=== PATIENT | female | born 1980 | race Caucasian/White ===

== ENCOUNTER 2020-12-23 21:32 | Emergency (ER) | payer MEDICAID ==
[2020-12-23] MEDS ORDERED: SODIUM CHLORIDE 0.9% 1,000 ML IV STA (22:02)
[2020-12-23] MEDS ORDERED: carvediloL 3.125 MG TABLET PO STA (22:02)
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
[2020-12-23 22:20] LABS: BILIRUBIN,URINE NEGATIVE (NEGATIVE); CLARITY,URINE CLEAR (CLEAR); GLUCOSE, URINE (UA) NEGATIVE (NEGATIVE); KETONES,URINE (UA) NEGATIVE (NEGATIVE); LEUKOCYTE ESTERASE, URINE NEGATIVE (NEGATIVE); NITRITE,URINE NEGATIVE (NEGATIVE); OCCULT BLOOD,URINE NEGATIVE (NEGATIVE); PROTEIN,URINE NEGATIVE (NEGATIVE); UROBILINOGEN,URINE 0.2 (NORMAL) E.U./dL (NORMAL)
[2020-12-23 22:32] LABS: BASOPHILS # (AUTO) 0.1 10^3/uL (0.0-0.1); BASOPHILS % (AUTO) 0.6 %; EOSINOPHILS # (AUTO) 0.2 10^3/uL (0.0-0.7); EOSINOPHILS % (AUTO) 2.2 %; HGB - HEMOGLOBIN 13.7 g/dL (12.0-16.0); LYMPHOCYTES # (AUTO) 3.7 10^3/uL (1.5-3.5); LYMPHOCYTES % (AUTO) 33.8 %; MEAN CORPUSCULAR VOLUME 93.9 fL (81.0-99.0); MEAN PLATELET VOLUME 10.2 fL (7.9-10.8); MONOCYTES # (AUTO) 0.6 10^3/uL (0.0-1.0); MONOCYTES % (AUTO) 5.5 %; NEUTROPHILS # (AUTO) 6.3 10^3/uL (1.5-6.6); NEUTROPHILS % (AUTO) 57.5 %; PLT - PLATELET COUNT 299 10^3/uL (130-450); RED BLOOD COUNT 4.56 10^6/uL (4.20-5.40); RED CELL DISTRIBUTION WIDTH 13.8 % (12.0-15.0)
[2020-12-23 22:46] LABS: ALBUMIN 3.7 g/dL (3.2-5.5); ALBUMIN/GLOBULIN RATIO 1.2 (1.0-2.2); BILIRUBIN,TOTAL 0.5 mg/dL (0.2-1.0); CALCIUM 8.8 mg/dL (8.5-10.3); CREATININE 0.9 mg/dL (0.4-1.0); MAGNESIUM 1.8 mg/dL (1.7-2.8); TOTAL PROTEIN 6.7 g/dL (6.7-8.2)
[2020-12-24] MEDS ORDERED: SODIUM CHLORIDE 0.9% 500 ML IV STA (00:09)
[2020-12-24 01:03] VITALS: BP 141/117
[2020-12-24] MEDS ORDERED: lisinopriL 5 MG TABLET PO STA (01:06)
--- NOTE | 2020-12-24 09:33 | XRAY Report ---
PROCEDURE: Chest 1 View X-Ray INDICATIONS: Shortness of breath. TECHNIQUE: One view of the chest was acquired. COMPARISON: FINDINGS: Surgical changes and devices: None. Lungs and pleura: No pleural effusions or pneumothorax. Lungs are difficult to accurately assess du e to mildly reduced inspiratory volume and large body habitus. There may be a small degree of pulmona ry edema. Mediastinum: Mediastinal contours appear normal. Heart size is normal. Bones and chest wall: No suspicious bony lesions. Overlying soft tissues appear unremarkable. IMPRESSION: Possible slight pulmonary edema. However, body habitus is large and the reduced inspiratory volume fu rther increases likelihood of false-positive sensitive alveolar edema. Upright PA and lateral chest p baldo film would be helpful for more accurate assessment. Reviewed by: Rj Falcon MD on 12/24/2020 9:31 AM PST Approved by: Rj Falcon MD on 12/24/2020 9:31 AM PST Station ID: [id number]
== END 2020-12-24 01:27 | disposition home or self-care (01) ==
LOC: ED 21:32
DX: I11.0 Hypertensive heart disease with heart failure (principal); I50.9 Heart failure, unspecified; T44.7X6A Underdosing of beta-adrenoreceptor antagonists, initial encounter; T46.4X6A Underdosing of angiotensin-converting-enzyme inhibitors, initial encounter; Z91.138 Patient's unintentional underdosing of medication regimen for other reason; E86.0 Dehydration
CPT/HCPCS: 36415; 71045; 80053; 81003; 83690; 83735; 83880; 84484; 85025; 93005; 96360; 96361; 99284; A9270; 81001; 87086

== ENCOUNTER 2021-02-20 14:45 | Emergency (ER) | payer MEDICAID ==
[2021-02-20 15:27] LABS: BASOPHILS # (AUTO) 0.1 10^3/uL (0.0-0.1); BASOPHILS % (AUTO) 0.7 %; EOSINOPHILS # (AUTO) 0.2 10^3/uL (0.0-0.7); EOSINOPHILS % (AUTO) 2.1 %; HCT - HEMATOCRIT 40.9 % (37.0-47.0); HGB - HEMOGLOBIN 13.5 g/dL (12.0-16.0); LYMPHOCYTES # (AUTO) 3.3 10^3/uL (1.5-3.5); LYMPHOCYTES % (AUTO) 31.3 %; MEAN CORPUSCULAR HEMOGLOBIN 30.5 pg (27.0-31.0); MEAN CORPUSCULAR VOLUME 92.3 fL (81.0-99.0); MONOCYTES # (AUTO) 0.8 10^3/uL (0.0-1.0); MONOCYTES % (AUTO) 7.5 %; NEUTROPHILS # (AUTO) 6.2 10^3/uL (1.5-6.6); NEUTROPHILS % (AUTO) 57.9 %; PLT - PLATELET COUNT 281 10^3/uL (130-450); RED BLOOD COUNT 4.43 10^6/uL (4.20-5.40); RED CELL DISTRIBUTION WIDTH 13.9 % (12.0-15.0); WHITE BLOOD COUNT 10.6 x10^3/uL (4.8-10.8)
[2021-02-20 15:36] LABS: ALBUMIN 3.7 g/dL (3.2-5.5); ALBUMIN/GLOBULIN RATIO 1.2 (1.0-2.2); BILIRUBIN,TOTAL 0.3 mg/dL (0.2-1.0); CALCIUM 9.1 mg/dL (8.5-10.3); CREATININE 0.7 mg/dL (0.4-1.0); POTASSIUM 3.8 mmol/L (3.5-5.0); TOTAL PROTEIN 6.8 g/dL (6.7-8.2)
--- NOTE | 2021-02-20 16:05 | XRAY Report ---
PROCEDURE: Chest 1 View X-Ray INDICATIONS: Chest pain TECHNIQUE: One view of the chest was acquired. COMPARISON: 12/23/2020 FINDINGS: Surgical changes and devices: None. Lungs and pleura: No pleural effusions or pneumothorax. Lungs are clear. Mediastinum: Mediastinal contours appear normal. Heart size is normal. Bones and chest wall: No suspicious bony lesions. Overlying soft tissues appear unremarkable. IMPRESSION: Portable chest study within normal limits. Reviewed by: Maximilian Valdez MD on 02/20/2021 3:04 PM AKDT Approved by: Maximilian Valdez MD on 02/20/2021 3:04 PM AKDT Station ID: [id number]
[2021-02-20] MEDS ORDERED: carvediloL 12.5 MG TABLET PO STA (16:07)
[2021-02-20] MEDS ORDERED: FUROSEMIDE 40 MG/4 ML VIAL IVP STA (16:07)
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
[2021-02-20] MEDS ORDERED: oxyCODONE 5 MG TABLET PO STA (16:33)
--- OUTSIDE RECORDS SUMMARY | 2021-02-20 17:14 | EXTERNAL MEDICAL SUMMARY RPT | Continuity of Care Document ---
:1980 Demographics Phone Unavailable Preferred Language Unknown Marital Status Unknown Denominational Affiliation Unknown Race Unknown Ethnic Group Unknown Author Organization [facility] Address [address] [id number] Phone Social History date description facility [id number]
[2021-02-20 17:27] VITALS: BP 119/78
== END 2021-02-20 17:41 | disposition home or self-care (01) ==
LOC: ED 14:45
DX: B33.24 Viral cardiomyopathy (principal)
CPT/HCPCS: 36415; 71045; 80053; 83690; 83880; 84484; 85025; 93005; 96374; 99284; A9270

== ENCOUNTER 2021-03-20 13:42 | Emergency (ER) | payer MEDICAID ==
[2021-03-20] MEDS ORDERED: MAG HYDROX/AL HYDROX/SIMETH 30 ML UDC PO STA (14:20)
--- NOTE | 2021-03-20 14:20 | ED Physician Documentation ---
History of Present Illness - Stated complaint Stated Complaint: DIZZINESS/FATIGUE - Chief complaint Chief Complaint: General - History obtained from History obtained from: Patient - Additonal information Additional information: 40-year-old woman with history of remote cholecystectomy and viral cardiomyopathy with EF in the mid 20s presents with right-sided abdominal pain that was central and is now more right. Feels like prior gallbladder pain but has had her gallbladder out. Is nauseous but denies vomiting. Its been going on for a month, she was going to wait to have it checked out but this morning at 5 AM awoke with headache, bilateral ear pressure and nonvertiginous dizziness. Review of Systems Ten Systems: 10 systems reviewed and negative Constitutional: denies: Fever, Chills Eyes: denies: Loss of vision, Decreased vision Ears: reports: Ear pain. denies: Loss of hearing Nose: denies: Rhinorrhea / runny nose PD PAST MEDICAL HISTORY - Past Medical History Past Medical History: Yes Cardiovascular: Other - Past Surgical History Past Surgical History: Yes General: Cholecystectomy - Present Medications Home Medications: Ambulatory Orders Medication Instructions Recorded Confirmed Carvedilol [Coreg] 6.25 mg PO DAILY #30 tab 12/24/20 Furosemide [Lasix] 40 mg PO DAILY PRN #30 tab 12/24/20 Lisinopril [Prinivil] 5 mg PO DAILY #30 tab 12/24/20 Oxycodone HCl/Acetaminophen 1 - 2 each PO Q6H PRN #10 tablet 02/20/21 [Percocet 5-325 mg Tablet] carvediloL [Coreg] 12.5 mg PO BID #60 tablet 02/20/21 HYDROcod/ACETAM 5/325 [Delevan 5/325] 1 - 2 tab PO Q6H PRN #15 tablet 03/20/21 Omeprazole 40 mg PO DAILY #30 cap 03/20/21 - Allergies Allergies/Adverse Reactions: Allergies Allergy/AdvReac Type Severity Reaction Status Date / Time cephalexin [From Keflex] AdvReac Hives Verified 03/20/21 13:52 - Social History Does the pt smoke?: No Smoking Status: Never smoker Does the pt drink ETOH?: No Does the pt have substance abuse?: No - Immunizations Immunizations are current?: Yes - POLST Patient has POLST: No PD ED PE NORMAL - Vitals Vital signs reviewed: Yes - General General: Alert and oriented X 3, No acute distress - HEENT HEENT: PERRL, EOMI, Other (Sclerosis of the right TM, no fluid behind either eardrum.) - Neck Neck: Supple, no meningeal sign, No bony TTP - Cardiac Cardiac: RRR, No murmur - Respiratory Respiratory: No respiratory distress, Clear bilaterally - Abdomen Abdomen: Normal bowel sounds, Soft, Non tender - Back Back: No CVA TTP, No spinal TTP - Derm Derm: Normal color, Warm and dry - Extremities Extremities: No edema, No calf tenderness / cord - Neuro Neuro: Alert and oriented X 3, No motor deficit, No sensory deficit, Normal speech, Other (NIH stroke scale of 0) Results - Vitals Vitals: Vital Signs - 24 hr 03/20/21 03/20/21 13:46 14:07 Temperature 36.5 C 36.5 C Heart Rate 110 H 110 H Respiratory 17 17 Rate Blood Pressure 142/108 H 142/108 H O2 Saturation 97 97 Oxygen O2 Source Room air - Labs Labs: Laboratory Tests 03/20/21 03/20/21 03/20/21 14:23 14:35 14:35 WBC 11.4 H RBC 4.53 Hgb 13.5 Hct 42.1 MCV 92.9 MCH 29.8 MCHC 32.1 RDW 14.1 Plt Count 274 MPV 10.1 Neut # (Auto) 6.5 Lymph # (Auto) 3.5 [place] # (Auto) 0.9 Eos # (Auto) 0.4 Baso # (Auto) 0.1 Absolute Nucleated RBC 0.00 Nucleated RBC % 0.0 Sodium 135 Potassium 3.9 Chloride 100 L Carbon Dioxide 24 Anion Gap 11.0 BUN 18 Creatinine 0.8 Estimated GFR (MDRD) 79 L Glucose 136 H Calcium 9.2 Total Bilirubin 0.4 AST 39 ALT 42 Alkaline Phosphatase 60 B-Natriuretic Peptide Total Protein 6.8 Albumin 3.9 Globulin 2.9 Albumin/Globulin Ratio 1.3 Lipase 40 Urine Color YELLOW Urine Clarity CLEAR Urine pH 6.0 Ur Specific [place] 1.025 Urine Protein NEGATIVE Urine Glucose (UA) NEGATIVE Urine Ketones NEGATIVE Urine Occult Blood NEGATIVE Urine Nitrite NEGATIVE Urine Bilirubin NEGATIVE Urine Urobilinogen 0.2 (NORMAL) Ur Leukocyte Esterase NEGATIVE Ur Microscopic Review NOT INDICATED Urine Culture Comments NOT INDICATED Urine HCG, Qual NEGATIVE 03/20/21 14:35 WBC RBC Hgb Hct MCV MCH MCHC RDW Plt Count MPV Neut # (Auto) Lymph # (Auto) [place] # (Auto) Eos # (Auto) Baso # (Auto) Absolute Nucleated RBC Nucleated RBC % Sodium Potassium Chloride Carbon Dioxide Anion Gap BUN Creatinine Estimated GFR (MDRD) Glucose Calcium Total Bilirubin AST ALT Alkaline Phosphatase B-Natriuretic Peptide 54 Total Protein Albumin Globulin Albumin/Globulin Ratio Lipase Urine Color Urine Clarity Urine pH Ur Specific [place] Urine Protein Urine Glucose (UA) Urine Ketones Urine Occult Blood Urine Nitrite Urine Bilirubin Urine Urobilinogen Ur Leukocyte Esterase Ur Microscopic Review Urine Culture Comments Urine HCG, Qual - Rads (name of study) 2v chest Radiology: EMP read contemporaneously (NAD) CT Head and Abd Radiology: EMP read contemporaneously PD MEDICAL DECISION MAKING - ED course ED course: 40-year-old woman with history of cardiomyopathy and congestive heart failure presents with months worth of abdominal pain, specific concern for appendicitis but does not fit the history and physical. Also has nonspecific headache and dizziness. Her examination is very benign. No evidence of active fluid overload or CHF. Departure - Departure Disposition: Home, Self Care Clinical Impression: Viral cardiomyopathy, Dizziness Congestive heart failure Qualifiers: Heart failure type: unspecified Heart failure chronicity: chronic Qualified Code(s): I50.9 - Heart failure, unspecified Abdominal pain Qualifiers: Abdominal location: right lower quadrant Qualified Code(s): R10.31 - Right lower quadrant pain Condition: Good Record reviewed to determine appropriate education?: Yes Instructions: ED Abdominal Pain Unkn Cause Prescriptions: HYDROcod/ACETAM 5/325 [Delevan 5/325] 1 - 2 tab PO Q6H PRN #15 tablet PRN Reason: Pain Omeprazole 40 mg PO DAILY #30 cap Comments: .As discussed, there is no evidence of active heart failure. Your labs, CT of the head were normal as was your chest x-ray without evidence of fluid overload. CT of the belly showed diverticulosis and fatty liver. This could be the cause of your pain, probably reasonable to follow-up with your primary care physician on return home. Return for new or worsening symptoms I am prescribing a short course of narcotic pain medication for you. These are potentially dangerous and addictive medications that should be used carefully. These medications may constipate you. Take an [id number] stool softener (docusate) twice daily with plenty of water while taking these medications. If you go 24 hours without a bowel movement, take [id number] miralax, per package instructions. Do not drink or drive while taking these medications. If you received narcotic or sedating medications while in the emergency department, do not drive for 24 hours. Store this medication in a safe, secure place and out of reach of children. It is a violation of federal law to give or sell this medication to another person or to use in a manner other than prescribed. The ED will not refill narcotic prescriptions, including prescriptions lost or stolen. To dispose of unwanted medications: 1. [facility] at [address] in [facility] has a medication drop box. They accept prescription medications (in pill form) Monday through Monday 9:00 a.m. to 5:00 p.m. 2. The [facility] [employer] accepts prescription medications (in pill form only) for disposal year round. Call for more information. 3. Contact the [facility] for the next [facility] sponsored prescription drug collection event. , [phone], or [phone]; Note that many narcotic pain relievers also contain Tylenol/acetaminophen. Please ensure that your total dose of acetaminophen from all sources does not exceed 3 g (3000 mg) per day.
[2021-03-20] MEDS ORDERED: IOVERSOL 320 100 ML VIAL IVP ONE ×2 (14:27→15:19)
[2021-03-20 14:31] LABS: BILIRUBIN,URINE NEGATIVE (NEGATIVE); GLUCOSE, URINE (UA) NEGATIVE (NEGATIVE); KETONES,URINE (UA) NEGATIVE (NEGATIVE); LEUKOCYTE ESTERASE, URINE NEGATIVE (NEGATIVE); NITRITE,URINE NEGATIVE (NEGATIVE); OCCULT BLOOD,URINE NEGATIVE (NEGATIVE); PROTEIN,URINE NEGATIVE (NEGATIVE); UROBILINOGEN,URINE 0.2 (NORMAL) E.U./dL (NORMAL)
[2021-03-20 14:35] LABS: CLARITY,URINE CLEAR (CLEAR); HCG UR QUAL NEGATIVE
[2021-03-20 14:49] LABS: BASOPHILS # (AUTO) 0.1 10^3/uL (0.0-0.1); BASOPHILS % (AUTO) 0.9 %; EOSINOPHILS # (AUTO) 0.4 10^3/uL (0.0-0.7); EOSINOPHILS % (AUTO) 3.1 %; HCT - HEMATOCRIT 42.1 % (37.0-47.0); HGB - HEMOGLOBIN 13.5 g/dL (12.0-16.0); LYMPHOCYTES # (AUTO) 3.5 10^3/uL (1.5-3.5); LYMPHOCYTES % (AUTO) 30.8 %; MEAN CORPUSCULAR HEMOGLOBIN 29.8 pg (27.0-31.0); MEAN CORPUSCULAR HGB CONC 32.1 g/dL (32.0-36.0); MEAN CORPUSCULAR VOLUME 92.9 fL (81.0-99.0); MEAN PLATELET VOLUME 10.1 fL (7.9-10.8); MONOCYTES # (AUTO) 0.9 10^3/uL (0.0-1.0); MONOCYTES % (AUTO) 7.6 %; NEUTROPHILS # (AUTO) 6.5 10^3/uL (1.5-6.6); NEUTROPHILS % (AUTO) 57.2 %; PLT - PLATELET COUNT 274 10^3/uL (130-450); RED BLOOD COUNT 4.53 10^6/uL (4.20-5.40); RED CELL DISTRIBUTION WIDTH 14.1 % (12.0-15.0); WHITE BLOOD COUNT 11.4 x10^3/uL (4.8-10.8)
[2021-03-20 15:02] LABS: ALBUMIN 3.9 g/dL (3.2-5.5); ALBUMIN/GLOBULIN RATIO 1.3 (1.0-2.2); BILIRUBIN,TOTAL 0.4 mg/dL (0.2-1.0); CALCIUM 9.2 mg/dL (8.5-10.3); CREATININE 0.8 mg/dL (0.4-1.0); POTASSIUM 3.9 mmol/L (3.5-5.0); TOTAL PROTEIN 6.8 g/dL (6.7-8.2)
--- NOTE | 2021-03-20 15:22 | XRAY Report ---
PROCEDURE: Chest 2 View X-Ray INDICATIONS: dyspnea TECHNIQUE: 2 view(s) of the chest. COMPARISON: 12/23/2020 and 02/20/2021 FINDINGS: Surgical changes and devices: None. Lungs and pleura: No pleural effusions or pneumothorax. Lungs are clear. Mediastinum: Mediastinal contours are normal. Heart size is normal. Bones and chest wall: No suspicious bony abnormalities. Soft tissues appear unremarkable. IMPRESSION: Chest without acute cardiopulmonary abnormalities. No focal airspace disease. Reviewed by: Zachery Mujica MD on 03/20/2021 3:21 PM PDT Approved by: Zachery Mujica MD on 03/20/2021 3:21 PM PDT Station ID: [id number]
--- NOTE | 2021-03-20 15:42 | CT Report ---
PROCEDURE: HEAD WO INDICATIONS: headache TECHNIQUE: Noncontrast 4.5 mm thick angled axial sections acquired from the foramen magnum to the vertex. For r adiation dose reduction, the following was used: automated exposure control, adjustment of mA and/or kV according to patient size. COMPARISON: None. FINDINGS: Image quality: Excellent. CSF spaces: Basal cisterns are patent. No extra-axial fluid collections. Ventricles are normal in size and shape. Brain: No midline shift. No intracranial masses or hemorrhage. Ferrer-white matter interface is norm al. Skull and face: Calvarium and visualized facial bones are intact, without suspicious lesions. Sinuses: Visualized sinuses and mastoids are clear. IMPRESSION: CT head without acute intracranial abnormalities. Reviewed by: Zachery Mujica MD on 03/20/2021 3:41 PM PDT Approved by: Zachery Mujica MD on 03/20/2021 3:41 PM PDT Station ID: [id number]
--- NOTE | 2021-03-20 15:58 | CT Report ---
PROCEDURE: Abdomen/Pelvis W INDICATIONS: IV only, abd pain CONTRAST: IV CONTRAST: Optiray 320 ml: 100 PO CONTRAST: *NO PO CONTRAST TECHNIQUE: After the administration of weight appropriate dose of intravenous contrast, 5 mm thick sections acqu ired from the diaphragms to the symphysis. 5 mm thick coronal and sagittal reformats were acquired. For radiation dose reduction, the following was used: automated exposure control, adjustment of mA and/or kV according to patient size. COMPARISON: None. FINDINGS: Image quality: Excellent. ABDOMEN: Lung bases: Minimal bibasilar atelectasis. Heart size is normal. Solid organs: Liver and spleen are normal in size and enhancement. Diffuse hepatic steatosis. Gallb ladder is surgically absent.s Biliary system is non dilated. Pancreas enhances normally. No adrena l nodules. Kidneys demonstrate normal size and enhancement, without hydronephrosis. Peritoneum and bowel: Bowel loops demonstrate normal wall thickness and caliber. No free fluid or a ir. Scattered colonic diverticula without acute inflammation. Normal appendix. Nodes and vessels: No retroperitoneal or mesenteric adenopathy by size criteria. Aorta and inferior vena cava are normal in size. Miscellaneous: No ventral hernias. PELVIS: Genitourinary: Bladder wall thickness is normal. Miscellaneous: No inguinal hernias or adenopathy. Bones: No suspicious bony lesions. No vertebral body compression fractures. IMPRESSION: CT abdomen and pelvis without acute abnormalities. Scant colonic diverticulosis without acute diverticulitis. Normal appendix. Status post cholecystectomy. Diffuse hepatic steatosis. Reviewed by: Zachery Mujica MD on 03/20/2021 3:57 PM PDT Approved by: Zachery Mujica MD on 03/20/2021 3:57 PM PDT Station ID: [id number]
[2021-03-20 16:22] VITALS: BP 133/89
== END 2021-03-20 16:27 | disposition home or self-care (01) ==
LOC: ED 13:42
DX: B33.24 Viral cardiomyopathy (principal); R42 Dizziness and giddiness; I50.9 Heart failure, unspecified
CPT/HCPCS: 36415; 70450; 71046; 74177; 80053; 81003; 81025; 83690; 83880; 85025; 99284; A9270; Q9967; 81001; 87086

== ENCOUNTER 2021-03-21 14:04 | Emergency (ER) | payer MEDICAID ==
[2021-03-21] MEDS ORDERED: PROCHLORPERAZINE 10 MG/2 ML VIAL IVP STA (14:10)
[2021-03-21] MEDS ORDERED: diphenhydrAMINE INJ 50 MG/ML VIAL IVP STA (14:10)
--- NOTE | 2021-03-21 14:12 | ED Physician Documentation ---
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 Seen yesterday for a month worth of nausea, nonspecific dizziness, ear pressure, headache. Had a thorough work-up demonstrating basically normal CBC with a white count of 11, normal chemistries, no evidence of active heart failure. No evidence of UTI or . CT of the head and belly as well as chest x-ray were remarkable only for incidental findings such as fatty liver and diverticulosis. This morning she got out of bed and was profoundly more dizzy. She feels like she is on a roller coaster. It is much worse when she turns her head. It is also associated with a pounding headache, light sensitivity and continued ear pressure. She has vomited 2 times today. 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 Review of Systems Ten Systems: 10 systems reviewed and negative Constitutional: denies: Fever, Chills Eyes: reports: Photophobia Ears: denies: Loss of hearing, Ear pain Nose: denies: Rhinorrhea / runny nose, Congestion Throat: denies: Sore throat Cardiac: denies: Chest pain / pressure, Palpitations PD PAST MEDICAL HISTORY - Past Medical History Cardiovascular: Other - Past Surgical History Past Surgical History: Yes General: Cholecystectomy - Present Medications Home Medications: Ambulatory Orders Medication Instructions Recorded Confirmed Furosemide [Lasix] 40 mg PO DAILY PRN #30 tab 12/24/20 03/21/21 Oxycodone HCl/Acetaminophen 1 - 2 each PO Q6H PRN #10 tablet 02/20/21 03/21/21 [Percocet 5-325 mg Tablet] carvediloL [Coreg] 12.5 mg PO BID #60 tablet 02/20/21 03/21/21 HYDROcod/ACETAM 5/325 [[place] 5/325] 1 - 2 tab PO Q6H PRN #15 tablet 03/20/21 03/21/21 Omeprazole 40 mg PO DAILY #30 cap 03/20/21 03/21/21 Lisinopril [Prinivil] 5 mg PO BID 05/23/21 05/23/21 Meclizine HCl [Antivert] 1 tablet PO Q6H PRN #30 tab 03/21/21 Ondansetron Odt [Zofran] 4 mg TL Q6H PRN #10 tablet 03/21/21 - Allergies Allergies/Adverse Reactions: Allergies Allergy/AdvReac Type Severity Reaction Status Date / Time cephalexin [From Keflex] AdvReac Hives Verified 03/21/21 14:11 - Social History Does the pt smoke?: No Smoking Status: Never smoker Does the pt drink ETOH?: No Does the pt have substance abuse?: No - Immunizations Immunizations are current?: Yes - POLST Patient has POLST: No PD ED PE NORMAL - Vitals Vital signs reviewed: Yes - General General: Alert and oriented X 3, Other (She appears miserable and unwilling to keep her eyes open for long. She is quite photophobic. She is unable to cooperate with extraocular movement exam on initial evaluation because she is too symptomatic.) - HEENT HEENT: PERRL, EOMI (No obvious nystagmus on exam just after 3pm p meds.) - Neck Neck: Supple, no meningeal sign, No bony TTP - Cardiac Cardiac: RRR, No murmur - Respiratory Respiratory: No respiratory distress, Clear bilaterally - Abdomen Abdomen: Non tender - Back Back: No CVA TTP, No spinal TTP - Derm Derm: Normal color, Warm and dry - Neuro Neuro: Alert and oriented X 3, Normal speech Eye Opening: Spontaneous Motor: Obeys Commands Verbal: Oriented GCS Score: 15 - Psych Psych: Normal mood, Normal affect Results - Vitals Vitals: Vital Signs - 24 hr 03/21/21 03/21/21 14:11 14:44 Temperature 37.1 C 37.5 C Heart Rate 110 H 105 H Respiratory 18 20 Rate Blood Pressure 160/110 H 160/108 H O2 Saturation 97 95 Oxygen O2 Source Room air - Labs Labs: Laboratory Tests 03/21/21 14:22 Sodium 135 Potassium 4.3 Chloride 97 L Carbon Dioxide 26 Anion Gap 12.0 BUN 19 Creatinine 0.9 Estimated GFR (MDRD) 69 L Glucose 130 H Calcium 8.6 PD MEDICAL DECISION MAKING - ED course ED course: 40-year-old woman with acute severe vertigo. After the administration of Benadryl and Compazine she appeared more comfortable but was still quite symptomatic. Given her history of cardiomyopathy went for CT angiography of the head and neck which was subsequently negative and on return from CT she was asymptomatic. Departure - Departure Disposition: 01 Home, Self Care Clinical Impression: Vertigo Condition: Good Record reviewed to determine appropriate education?: Yes Instructions: ED Vertigo Unspecified Prescriptions: Meclizine HCl [Antivert] 1 tablet PO Q6H PRN #30 tab PRN Reason: Vertigo Ondansetron Odt [Zofran] 4 mg TL Q6H PRN #10 tablet PRN Reason: Nausea / Vomiting Comments: Call your doctor to arrange a follow-up appointment, make the next available appointment. In the interim, return anytime if worse or if new symptoms develop. Do not drive today
[2021-03-21 14:35] LABS: CALCIUM 8.6 mg/dL (8.5-10.3); CREATININE 0.9 mg/dL (0.4-1.0); POTASSIUM 4.3 mmol/L (3.5-5.0)
[2021-03-21] MEDS ORDERED: ONDANSETRON 4 MG/2 ML VIAL IVP STA (15:01)
[2021-03-21] MEDS ORDERED: ACETAMINOPHEN 325 MG TABLET PO STA (15:01)
[2021-03-21] MEDS ORDERED: IOVERSOL 320 100 ML VIAL IVP ONE ×2 (15:06→15:50)
--- NOTE | 2021-03-21 15:58 | CT Report ---
PROCEDURE: ANGIO HEAD W/WO INDICATIONS: vertigo CONTRAST: IV CONTRAST: Optiray 320 ml: 80 PO CONTRAST: *NO PO CONTRAST TECHNIQUE: Precontrast 4.5 mm thick angled axial sections acquired from the foramen magnum to the vertex. Afte r the administration of intravenous contrast, 1 mm thick sections acquired through the [place] is. Postcontrast 4.5 mm thick sections then re-acquired from the foramen magnum to the vertex. 3-di mensional pyomyxz-nwzwfnzfl-zczustgruk (MIP) and/or volume rendering reformats were acquired of the c entral intracranial vasculature. For radiation dose reduction, the following was used: automated ex posure control, adjustment of mA and/or kV according to patient size. COMPARISON: Noncontrast head CT, 03/21/2021 FINDINGS: Image quality: Motion artifact is noted. Anterior circulation: Intracranial internal carotid arteries are normal in size and flow. The flow within the paired anterior cerebral arteries is normal and symmetric. The flow within the middle cer ebral arteries is normal and symmetric. The anterior communicating artery is not well seen. No aneu rysms are seen. Posterior circulation: Visualized portions of the vertebral arteries demonstrate normal caliber, and join to form a normal appearing basilar artery. Incidental note is made of a prominent right medical sonographer ior communicating artery, with a diminutive right P1 segment. This is attributed to a type orig in of the right posterior cerebral artery, which is considered to be a developmental variant of typic ally no clinical consequence. Flow within the posterior cerebral arteries is normal and symmetric. No aneurysms are seen. CSF spaces: Ventricles are normal in size and shape. Basal cisterns are patent. No extra-axial flu id collections. Brain: No midline shift. No intracranial bleeds or masses. Ferrer-white matter interface appears int act. Skull and face: Calvarium and facial bones appear intact, without suspicious lesions. Sinuses: Visualized sinuses and mastoids are clear. IMPRESSION: No significant intracranial arterial abnormalities are seen. No masses or abnormal enhancement can be seen. [place] developmental anomalies are incidentally noted, which are not considered to be clini oc significant. Reviewed by: Maximilian Valdez MD on 03/21/2021 2:57 PM TIERRA Approved by: Maximilian Valdez MD on 03/21/2021 2:57 PM TIERRA Station ID: [id number]
[2021-03-21 16:17] VITALS: BP 141/84
== END 2021-03-21 16:24 | disposition home or self-care (01) ==
LOC: EDUNIT# → ED 14:04
DX: R42 Dizziness and giddiness (principal); B33.24 Viral cardiomyopathy
CPT/HCPCS: 36415; 70496; 80048; 96374; 96375; 99284; A9270; J1200; Q9967